=== PATIENT | male | born 1960 | race African-American/Black ===

== ENCOUNTER 2022-04-29 16:57 | Observation (INO) | payer OTHER ==
[2022-04-29 17:48] LABS: #Basophils 0.1 10x3/uL (0.0-0.2); #Eosinphils 0.4 10x3/uL (0.0-0.5); #Monocytes 0.3 10x3/uL (0.0-1.1); #Neutrophils 2.8 10x3/uL (1.5-8.4); %Eosinophils 7.8 % (0.0-6.0); %Lymphocytes 27.6 % (18.0-47.0); %Monocytes 6.6 % (0.0-10.0); %Neutrophils 56.8 % (40.0-75.0); Mean Corpuscular HGB CONC 33.8 g/dL (32.0-36.0); Mean Corpuscular Volume 88.7 fl (81.2-95.1); Platelet Count 185 10x3/uL (150-450); RBC Distribution Width 13.5 % (11.5-14.5); Red Blood Cell (RBC) Count 4.34 10x6/uL (4.32-5.72)
[2022-04-29 17:58] LABS: ALT (SGPT) 25 U/L (8-55); AST (SGOT) 23 U/L (5-34); Alkaline Phosphatase 69 U/L (40-110); Anion Gap 13 mmol/L (10-20); BUN (Urea Nitrogen) 24 mg/dL (8.4-25.7); Bilirubin, Total 0.2 mg/dL (0.2-1.2); Calc. Creatinine Clearance 0 mL/min (70-130); Calcium 9.3 mg/dL (7.8-10.44); Carbon Dioxide 25 mmol/L (22-29); Chloride 109 mmol/L (98-107); Estimated GFR 43; Globulin 2.7 g/dL (2.4-3.5); Glucose 101 mg/dL (70-105); Lipase 310 U/L (8-78); Potassium 4.9 mmol/L (3.5-5.1); Protein, Total 6.7 g/dL (6.0-8.3); Sodium 142 mmol/L (136-145)
[2022-04-29] MEDS ORDERED: Aspirin Chewable 81 MG TAB ONE (18:01)
[2022-04-29] MEDS ORDERED: Nitroglycerin 0.4 MG TAB 1 EACH ONE ×2 (18:02→22:38)
[2022-04-29] MEDS ORDERED: Acetaminophen 500 MG TAB ONE (18:31)
[2022-04-29] MEDS ORDERED: Acetaminophen 325 MG TAB PO PRN (20:21)
[2022-04-29] MEDS ORDERED: Bisacodyl 5 MG TAB PO PRN (20:21)
[2022-04-29] MEDS ORDERED: Senokot S 8.6-50 MG TAB PO PRN (20:21)
[2022-04-29] MEDS ORDERED: Ondansetron PF 4 MG/2 ML Vial IVP PRN (20:21)
[2022-04-29] MEDS ORDERED: Ondansetron ODT 4 MG TAB PO PRN (20:21)
[2022-04-29] MEDS ORDERED: Nitroglycerin 0.4 MG TAB (25 Tab Bottle) SL PRN (20:21)
[2022-04-29] MEDS ORDERED: Nicotine 14 MG PATCH TD SCH (21:00)
[2022-04-29] MEDS ORDERED: Famotidine 20 MG TAB ONE (21:19)
[2022-04-29] MEDS ORDERED: Metoprolol Tartrate 25 MG TAB ONE (21:21)
[2022-04-29] MEDS: Metoprolol Tartrate 25 MG TAB PO SCH (21:30)
[2022-04-29] MEDS: Famotidine 20 MG TAB PO SCH (21:30)
[2022-04-29] MEDS: Lactated Ringer's 1,000 ML IV SCH (21:30)
[2022-04-29] MEDS: Famotidine/PF 20 mg/2ml Vial SLOW IVP SCH (22:11)
[2022-04-30 00:32] LABS: Troponin I 0.016 ng/mL (< 0.028)
[2022-04-30 03:50] LABS: Anion Gap 10 mmol/L (10-20); BUN (Urea Nitrogen) 22 mg/dL (8.4-25.7); Calc. Creatinine Clearance 0 mL/min (70-130); Calcium 9.1 mg/dL (7.8-10.44); Carbon Dioxide 24 mmol/L (22-29); Cardiac Risk 2.5 (Less than 4.5); Chloride 109 mmol/L (98-107); Cholesterol 135 mg/dl (< 200 Desired); Estimated GFR 67; Glucose 90 mg/dL (70-105); HDL Cholesterol 54 mg/dL (>60 Neg Risk); LDL Cholesterol, Calculated 72 mg/dL; Potassium 4.2 mmol/L (3.5-5.1); Sodium 139 mmol/L (136-145); Triglycerides 43 mg/dL (Less than 150)
[2022-04-30] MEDS ORDERED: Metoprolol Tartrate 25 MG TAB ONE (08:32)
[2022-04-30] MEDS ORDERED: Aspirin Chewable 81 MG TAB ONE (08:32)
[2022-04-30] MEDS ORDERED: Amlodipine 5 MG TAB ONE (08:33)
[2022-04-30] MEDS ORDERED: Famotidine 20 MG TAB ONE (08:37)
[2022-04-30] MEDS ORDERED: Losartan Potassium 50 MG TAB ONE (08:37)
[2022-04-30] MEDS ORDERED: Losartan Potassium 50 MG TAB PO SCH (09:00)
[2022-04-30] MEDS ORDERED: Amlodipine 10 MG TAB PO SCH (09:00)
[2022-04-30] MEDS ORDERED: Aspirin Chewable 81 MG TAB PO SCH (09:00)
[2022-04-30] MEDS: Lactated Ringer's 1,000 ML IV SCH (09:05)
[2022-04-30] MEDS: Famotidine 20 MG TAB PO SCH (09:11)
[2022-04-30] MEDS: Famotidine/PF 20 mg/2ml Vial SLOW IVP SCH (09:11)
[2022-04-30 09:12] VITALS: BP 160/94
[2022-04-30] MEDS: Metoprolol Tartrate 25 MG TAB PO SCH (09:12)
[2022-04-30 09:42] LABS: Amphetamine Not Detected (NotDetected); Barbiturates Screen Not Detected (NotDetected); Benzodiazepine Screen Not Detected (NotDetected); Cocaine Metabolite Screen Detected (NotDetected); Methadone Not Detected (NotDetected); Methamphetamine Not Detected (NotDetected); Opiate Screen Not Detected (NotDetected); Oxycodone Screen Not Detected (NotDetected); Phencyclidine (PCP) Not Detected (NotDetected); THC/Cannabinoid Screen Not Detected (NotDetected); Tricyclic Screen Not Detected (NotDetected)
== END 2022-04-30 12:58 | disposition home or self-care (01) ==
LOC: CSHERS 16:57 → CSHERHOLD 21:23 → INTOOBSV 21:23
PROVIDERS: ADMIT Student in an Organized Health Care Education/Training Program; ATTEND Internal Medicine
DX: K85.90 Acute pancreatitis without necrosis or infection, unspecified (principal); I12.9 Hypertensive chronic kidney disease with stage 1 through stage 4 chronic kidney disease, or unspecified chronic kidney disease; N18.9 Chronic kidney disease, unspecified; N17.9 Acute kidney failure, unspecified; D63.1 Anemia in chronic kidney disease; F14.10 Cocaine abuse, uncomplicated; F17.210 Nicotine dependence, cigarettes, uncomplicated; Z79.82 Long term (current) use of aspirin; Z79.899 Other long term (current) drug therapy
CPT/HCPCS: 71045; 80048; 80053; 80061; 80306; 83690 ×2; 84484 ×2; 85025; 93005; 99285; G0378 ×2; 36415; J1650; J7120

== ENCOUNTER 2022-10-08 07:48 | Emergency (ER) | payer OTHER ==
[2022-10-08] MEDS ORDERED: Gabapentin 100 MG CAP PO SCH (08:45)
== END 2022-10-08 09:10 | disposition home or self-care (01) ==
LOC: CSHERS 07:48
DX: M79.604 Pain in right leg (principal); G57.91 Unspecified mononeuropathy of right lower limb; I10 Essential (primary) hypertension; F17.210 Nicotine dependence, cigarettes, uncomplicated